=== PATIENT | male | born 1980 | race Caucasian/White ===

== ENCOUNTER → 2020-04-22 07:56 | Outpatient (BNVA) | payer OTHER, SELFPAY | PROVIDERS: Visit Provider Internal Medicine Endocrinology, Diabetes & Metabolism | DX: Z13.89 Encounter for screening for other disorder (principal) ==

== ENCOUNTER 2020-04-26 12:37 | Outpatient (REF) | payer OTHER, SELFPAY ==
[2020-04-26 13:56] LABS: Hematocrit 47.8 % (42-52); Hemoglobin 16.3 g/dl (14.0-18.0)
[2020-04-26 14:27] LABS: Alanine Aminotransferase 32 U/L (0-40); Albumin Level 4.5 g/dL (3.5-5.0); Alkaline Phosphatase 60 U/L (39-117); Aspartate Amino Transferase 26 U/L (5-37); Bilirubin Direct 0.2 mg/dL (0.0-0.5); Bilirubin Total 0.5 mg/dL (0.0-1.0); Cholesterol 159 mg/dL; HDL Cholesterol 42 mg/dL; LDL Cholesterol Calculated 64 mg/dl; Total Protein 7.5 g/dL (6.5-8.0); Triglycerides 265 mg/dL
[2020-04-26 14:58] LABS: Prostate Specific Antigen 1.15 ng/mL (<0.05-4.0)
[2020-04-28 05:48] LABS: Sex Hormone Binding Globulin 45 nmol/L (10-50)
[2020-05-01 15:53] LABS: Testosterone, Free 82.6 pg/mL (35.0-155.0); Testosterone, Total 661 ng/dL (250-1100)
[2020-05-03 04:17] LABS: Testosterone-Albumin 4.4 g/dL (3.6-5.1); Testosterone-Bioavailable 157.8 ng/dL (110.0-575.0); Testosterone-Free 78.4 pg/mL (46.0-224.0); Testosterone-SHBG 40 nmol/L (10-50); Testosterone-Total 651 ng/dL (250-1100)
== END 2020-04-26 12:38 | disposition home or self-care (01) ==
LOC: HO.10HDL 12:37
PROVIDERS: Visit Provider Internal Medicine Endocrinology, Diabetes & Metabolism
DX: E23.0 Hypopituitarism (principal)
CPT/HCPCS: 36415; 80061; 80076; 84153; 84270; 84402; 84403; 85014; 85018

== ENCOUNTER → 2020-06-07 08:03 | Outpatient (BNVA) | payer OTHER, SELFPAY | PROVIDERS: Visit Provider Internal Medicine Endocrinology, Diabetes & Metabolism ==

== ENCOUNTER → 2020-11-16 08:12 | Outpatient (BNVA) | payer OTHER, SELFPAY | PROVIDERS: Visit Provider Internal Medicine Endocrinology, Diabetes & Metabolism ==

== ENCOUNTER 2020-11-16 08:55 | Outpatient (REF) | payer OTHER, SELFPAY ==
[2020-11-16 10:39] LABS: Hematocrit 45.2 % (42-52); Hemoglobin 15.4 g/dl (14.0-18.0)
[2020-11-16 11:02] LABS: Cholesterol 136 mg/dL; HDL Cholesterol 44 mg/dL; LDL Cholesterol Calculated 76 mg/dl; Triglycerides 80 mg/dL
[2020-11-16 11:26] LABS: Prostate Specific Antigen 1.06 ng/mL (<0.05-4.0)
[2020-11-17 09:32] LABS: Sex Hormone Binding Globulin 37 nmol/L (10-50)
[2020-11-20 11:12] LABS: Testosterone-Albumin 4.3 g/dL (3.6-5.1); Testosterone-Free 77.7 pg/mL (46.0-224.0); Testosterone-SHBG 38 nmol/L (10-50); Testosterone-Total 618 ng/dL (250-1100)
[2020-11-25 16:06] LABS: Testosterone, Total 603 ng/dL (250-1100)
== END 2020-11-16 08:56 | disposition home or self-care (01) ==
LOC: HO.10HDL 08:55
PROVIDERS: Visit Provider Internal Medicine Endocrinology, Diabetes & Metabolism
DX: E23.0 Hypopituitarism (principal)
CPT/HCPCS: 36415; 80061; 84153; 84270; 84402; 84403; 84439; 84443; 85014; 85018